=== PATIENT | male | born 1965 | race Caucasian/White ===

== ENCOUNTER 2018-09-13 12:29 | Emergency (ER) | payer SELFPAY ==
--- NOTE | 2018-09-13 14:00 | CR ---
Chest: Two views of the chest were obtained. Comparison: Prior chest CT of 05/03/18. Granuloma is noted within the upper right lung which is calcified on previous CT exam. Slight increased density is noted within the right mid chest believed to represent callus within previous rib fracture. Very slight atelectasis is seen within the left base. Lungs otherwise are clear. Heart size and mediastinum are normal. Surgical screw is seen within the right humeral head. Degenerative spurring is noted within the mid and lower thoracic spine. Impression: 1. Findings which are felt to be incidental as noted above. Nothing acute is suspected. Diagnostic code #2
--- NOTE | 2018-09-13 15:04 | EDM.PDOC ---
ED HPI GENERAL MEDICAL PROBLEM - General Chief Complaint: Cardiovascular Problem Stated Complaint: SENT FROM [facility] Time Seen by Provider: 09/13/18 13:04 Source of Information: Reports: Patient History Limitations: Reports: No Limitations - History of Present Illness INITIAL COMMENTS - FREE TEXT/NARRATIVE: 53 y/o male presents to ER with cc dizziness and lightheaded. 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 He reports that he bent over and felt dizzy. He also reports when a "fluttering sensation in his chest lasted about 10 seconds." He reports that he checked his blood pressure was 169/119. He denies any diaphoresis nausea vomiting or shortness of breath during this episode. Patient was seen earlier today at [facility] and was referred to the emergency room by Dr. Bills for further evaluation. Patient does have a history of hypertension and diabetes. He reports that he stopped taking his medications a year and a half ago that his primary care doctor take him off of them. Onset Date: 09/12/18 Onset Time: 12:00 Duration: Intermittent Location: Reports: Chest Severity: Mild Improves with: Reports: None Worsens with: Reports: None Associated Symptoms: Reports: Syncope, Other (palpitations). Denies: Chest Pain , Shortness of Breath - Related Data Allergies Allergy/AdvReac Type Severity Reaction Status Date / Time No Known Allergies Allergy Verified 09/13/18 12:46 Home Meds: Home Meds Meloxicam 15 mg PO DAILY PRN 09/13/18 [History] Past Medical History HEENT History: Reports: Impaired Vision Cardiovascular History: Reports: Hypertension Respiratory History: Reports: Sleep Apnea, SOB Gastrointestinal History: Reports: GERD Genitourinary History: Reports: Renal Calculus Musculoskeletal History: Reports: Arthritis Psychiatric History: Reports: Anxiety Endocrine/Metabolic History: Reports: Diabetes, Type II - Infectious Disease History Infectious Disease History: Reports: Chicken Pox, Measles - Past Surgical History Musculoskeletal Surgical History: Reports: ORIF Dermatological Surgical History: Reports: Skin Biopsy Social & Family History - Family History Family Medical History: Noncontributory - Tobacco Use Smoking Status *Q: Current Every Day Smoker Years of Tobacco use: 30 Packs/Tins Daily: 0.2 - Caffeine Use Caffeine Use: Reports: Coffee - Alcohol Use Days Per Week of Alcohol Use: 7 Number of Drinks Per Day: 3 Total Drinks Per Week: 21 Date of Last Drink: 09/11/18 - Recreational Drug Use Recreational Drug Use: No ED ROS GENERAL - Review of Systems Review Of Systems: See Below Constitutional: Denies: Fever, Chills HEENT: Reports: No Symptoms Respiratory: Denies: Shortness of Breath Cardiovascular: Denies: Chest Pain Endocrine: Reports: No Symptoms GI/Abdominal: Reports: No Symptoms : Reports: No Symptoms Musculoskeletal: Reports: No Symptoms Skin: Reports: No Symptoms Neurological: Reports: Dizziness. Denies: Headache, Numbness, Syncope, Weakness Psychiatric: Reports: No Symptoms Hematologic/Lymphatic: Reports: No Symptoms Immunologic: Reports: No Symptoms ED EXAM, GENERAL - Physical Exam Exam: See Below Exam Limited By: No Limitations General Appearance: Alert, WD/WN, No Apparent Distress Ears: Normal External Exam, Normal Canal, Hearing Grossly Normal, Normal TMs Nose: Normal Inspection, Normal Mucosa, No Blood Throat/Mouth: Normal Inspection, Normal Lips, Normal Teeth, Normal Gums, Normal Oropharynx, Normal Voice, No Airway Compromise Head: Atraumatic, Normocephalic Neck: Normal Inspection, Supple, Non-Tender, Full Range of Motion Respiratory/Chest: No Respiratory Distress, Lungs Clear, Normal Breath Sounds, No Accessory Muscle Use, Chest Non-Tender Cardiovascular: Normal Peripheral Pulses, Regular Rate, Rhythm, No Edema, No Gallop, No JVD, No Murmur, No Rub Back Exam: Normal Inspection, Full Range of Motion Extremities: Normal Inspection, Normal Range of Motion, Non-Tender, No Pedal Edema, Normal Capillary Refill Neurological: Alert, Oriented, CN II-XII Intact, Normal Cognition, Normal Gait, Normal Reflexes, No Motor/Sensory Deficits Psychiatric: Normal Affect, Normal Mood Skin Exam: Warm, Dry, Intact, Normal Color, No Rash Lymphatic: No Adenopathy EKG INTERPRETATION EKG Date: 09/13/18 Time: 12:45 Rhythm: NSR EKG Interpretation Comments: possible LVH Course - Vital Signs Last Recorded V/S: Last Vital Signs Temp 98.1 F 09/13/18 12:47 Pulse 67 09/13/18 12:47 Resp 12 09/13/18 12:47 BP 168/96 H 09/13/18 12:47 Pulse Ox 99 09/13/18 12:47 - Orders/Labs/Meds Orders: Active Orders 24 hr Category Date Time Status Holter Monitor 24 Hours [RC] .PRN Care 09/13/18 14:54 Active Orthostatic Vital Signs [RC] ASDIRECTED Care 09/13/18 15:12 Active Labs: Laboratory Tests 09/13/18 09/13/18 Range/Units 13:30 13:30 Sodium 138 (136-145) mEq/L Potassium 3.8 (3.5-5.1) mEq/L Chloride 102 (98-107) mEq/L Carbon Dioxide 25 (21-32) mEq/L Anion Gap 14.8 (5-15) BUN 13 (7-18) mg/dL Creatinine 0.9 (0.7-1.3) mg/dL Est Cr Clr Drug Dosing 88.75 mL/min Estimated GFR (MDRD) > 60 (>60) mL/min BUN/Creatinine Ratio 14.4 (14-18) Glucose 131 H (74-106) mg/dL Calcium 9.3 (8.5-10.1) mg/dL Magnesium 2.0 (1.8-2.4) mg/dl Total Bilirubin 1.1 H (0.2-1.0) mg/dL AST 34 (15-37) U/L ALT 67 H (16-63) U/L Alkaline Phosphatase 93 (46-116) U/L Troponin I < 0.017 (0.00-0.056) ng/mL Total Protein 7.5 (6.4-8.2) g/dl Albumin 3.9 (3.4-5.0) g/dl Globulin 3.6 gm/dL Albumin/Globulin Ratio 1.1 (1-2) - Re-Assessments/Exams Free Text/Narrative Re-Assessment/Exam: 09/13/18 15:16 Urinalysis was unremarkable. CBC 9.8 H&H 16.6 and 49.9. Hemoglobin A1c 6.5. Chest x-ray reveals a granuloma is noted within the right upper lung which is calcified on previous CT exam. Slight increased density is noted with the right mid chest lead to represent calculus versus previous rib fracture. Very slight atelectasis is seen within the left base. Lungs otherwise are clear. Heart size and mediastinum are normal. Degenerative spurring is noted within the mid and lower thoracic spine. Sodium 138 potassium 3.8 chloride 102 CO2 25 on 13 creatinine 0.9. Glucose 131 magnesium 2.0. Troponin 0.017. I will discharge home with instructions to follow up with Dr. Bills for further evaluation and treatment of his hypertension. I'll discharge home to 24-hour Holter monitor to evaluate his "palpitations." Instructed patient to follow-up with Dr. Bills next week for Holter monitor results. Encouraged patient to return to the emergency room for new or acutely worsening symptoms. Departure - Departure Time of Disposition: 15:18 Disposition: Home, Self-Care 01 Condition: Good Clinical Impression: Dizziness Hypertension Qualifiers: Hypertension type: unspecified Qualified Code(s): I10 - Essential (primary) hypertension Instructions: Heart Disease Prevention, How to Take Your Blood Pressure, Near- Syncope, [id number], Hypertension, [id number], Preventing Hypertension, Dizziness, [id number] Referrals: PCP,Not In Area [Primary Care Provider] - Forms: ED Department Discharge Additional Instructions: He had been diagnosed with dizziness and hypertension. Your EKG revealed no acute findings. You need to follow-up with Dr. Bills to evaluate and treat your hypertension. You have been discharged with a Holter monitor which she were to wear 24 hours. Follow-up with Dr. Bills next week for your results. Return to the emergency room for any new or acutely worsening symptoms. - My Orders Last 24 Hours: My Active Orders 09/13/18 14:54 Holter Monitor 24 Hours [RC] .PRN 09/13/18 15:12 Orthostatic Vital Signs [RC] ASDIRECTED - Assessment/Plan Last 24 Hours: My Active Orders 09/13/18 14:54 Holter Monitor 24 Hours [RC] .PRN 09/13/18 15:12 Orthostatic Vital Signs [RC] ASDIRECTED
== END 2018-09-13 15:29 | disposition home or self-care (01) ==
LOC: JD.ED 12:29
DX: I10 Essential (primary) hypertension (principal); E11.9 Type 2 diabetes mellitus without complications; F17.210 Nicotine dependence, cigarettes, uncomplicated; Z79.899 Other long term (current) drug therapy
CPT/HCPCS: 36415; 71046; 71046-26; 80053; 83735; 84484; 93010; 93225; 93226; 99283; 99284-25